=== PATIENT | male | born 1980 | race Caucasian/White ===

== ENCOUNTER 2020-01-20 09:12 | Emergency (ER) | payer MEDICARE, MEDICAID ==
[~2020-01-20] VITALS: Ht 182.9 cm; Wt 143.2 kg
[~2020-01-20 09:12] MED LIST: ESCI10TA45 PO; LORA-512 PO; LORA0.5T PO
[2020-01-20] MEDS ORDERED: dexamethasone sod phosphate 10mg/ml inj IM STA (09:38)
[2020-01-20] MEDS ORDERED: ketorolac trometh inj. 60 MG/2 ML VIAL IM ONE (09:40)
[2020-01-20] MEDS ORDERED: CYCL5TAB PO (10:06)
[2020-01-20] MEDS ORDERED: METH4TAB81 PO (10:06)
[2020-01-20] MEDS ORDERED: IBUP-1984 PO (10:06)
[2020-01-20 10:23] VITALS: BP 147/100
== END 2020-01-20 10:22 | disposition home or self-care (01) ==
LOC: ER 09:12
DX: M54.5 Low back pain (principal); E78.00 Pure hypercholesterolemia, unspecified; G89.29 Other chronic pain; Z98.890 Other specified postprocedural states; Z79.899 Other long term (current) drug therapy
CPT/HCPCS: 96372; 99284; J1100; J1885

== ENCOUNTER 2020-06-26 10:43 | Day surgery (SDC) | payer MEDICARE, MEDICAID ==
[2020-06-21 09:33] LABS: BASOPHILS # (AUTO) 0.1 X10'3 (0-0.2); BASOPHILS % (AUTO) 1.2 % (0-1); EOSINOPHILS # (AUTO) 0.2 X10'3 (0-0.9); EOSINOPHILS % (AUTO) 2.2 % (0-6); LYMPHOCYTES # (AUTO) 2.1 X10'3 (1.1-4.8); LYMPHOCYTES % (AUTO) 30.5 % (21-51); MEAN CORPUSCULAR HEMOGLOBIN 29.8 PG (27.0-31.0); MEAN CORPUSCULAR HGB CONC 34.8 g/dL (33.0-36.5); MEAN CORPUSCULAR VOLUME 85.6 FL (78-98); MEAN PLATELET VOLUME 8.9 FL (7.4-10.4); MONOCYTES # (AUTO) 0.5 X10'3 (0-0.9); MONOCYTES % (AUTO) 7.6 % (2-12); NEUTROPHILS # (AUTO) 4.1 X10'3 (1.8-7.7); NEUTROPHILS % (AUTO) 58.5 % (42-75); PRE OP HEMATOCRIT 45.1 % (42.0-52.0); PRE OP HEMOGLOBIN 15.7 g/dL (14.0-17.9); PRE OP PLATELET COUNT 235 X10'3 (140-440); RED BLOOD COUNT 5.26 X10'6 (4.70-6.10); RED CELL DISTRIBUTION WIDTH 13.7 % (11.5-14.5)
[2020-06-21 09:47] LABS: ALBUMIN/GLOBULIN RATIO 1.1 (1.1-1.5); ALKALINE PHOSPHATASE 65 IU/L (46-116); BLOOD UREA NITROGEN 14 MG/DL (7-18); BUN/CREATININE RATIO 14.4 (5.4-32.0); CALCIUM 9.2 MG/DL (8.5-10.1); CHLORIDE 106 MMOL/L (99-107); CREATININE 0.97 MG/DL (0.60-1.10); PRE OP AST 31 U/L (10-37); PRE OP BILIRUB, TOTAL 0.7 MG/DL (0.0-1.0); PRE OP GLUCOSE 101 MG/DL (70-104); TOTAL CARBON DIOXIDE 25.7 MMOL/L (24-32); TOTAL PROTEIN 7.8 G/DL (6.4-8.2); eGFR 86 ML/MIN
[2020-06-21 09:49] LABS: PRE OP ANION GAP 8 (8-16); PRE OP SODIUM 140 MMOL/L (135-145)
[2020-06-21 10:02] LABS: PRE OP ALT 83 U/L (30-65)
[2020-06-26] VITALS (12 sets, daily range): BP systolic 121–147; BP diastolic 78–90
[~2020-06-26] VITALS: Ht 182.9 cm; Wt 140.5 kg
[~2020-06-26 10:43] MED LIST changes: +ATOR40TA71 PO; +BUS15T PO; +DOCUMENT DATE & TIME OF BETA-BLOCKER PO ONE; -ESCI10TA45 PO; -LORA-512 PO; -LORA0.5T PO; +LORA10TA7 PO; +OMEG1CAP13 PO; +PROP10TA10 PO; +acetaminophen 1,000mg/100ml IV 100 ML IV ONE; +famotidine 20mg tablet PO ONE; +ringers solution, lacted 1,000 ML IV SCH
[2020-06-26] MEDS ORDERED: ceFAZolin inj. 3,000 MG in normal saline 100ml IV soln 100 ML IV ONE (11:04)
[2020-06-26] MEDS ORDERED: BUPIVAcaine/PF 2.5mg/ml (0.25%) 10ml vial ONE (13:06)
[2020-06-26] MEDS ORDERED: BUPIVAcaine/PF 2.5 mg/ml (0.25%) 30ml vial ONE (13:06)
[2020-06-26] MEDS ORDERED: BUPIVACAINE liposomal/PF 13.3 MG/ML vial IM ONE (13:06)
[2020-06-26] MEDS ORDERED: LIDOcaine 1% 30ml preserv. free vial ONE (13:06)
[2020-06-26] MEDS ORDERED: sevoflurane 250ml liquid IH ONE (13:15)
[2020-06-26] MEDS ORDERED: midazolam 2 mg/2 ml injection ONE (13:16)
[2020-06-26] MEDS ORDERED: fentaNYL/PF 50MCG/1 ML 2ML syringe ONE ×2 (13:16→13:51)
[2020-06-26] MEDS ORDERED: succinylcholine 20mg/ml inj IV ONE (14:17)
[2020-06-26] MEDS ORDERED: ondansetron/PF 4mg/2ml inj ONE (14:17)
[2020-06-26] MEDS ORDERED: neostigmine methylsulfate 1 MG/ML 10ml vial ONE (14:17)
[2020-06-26] MEDS ORDERED: rocuronium 10mg/ml inj IV ONE (14:17)
[2020-06-26] MEDS ORDERED: LIDOcaine 2% (20mg/ml) 5ml vial ONE (14:17)
[2020-06-26] MEDS ORDERED: propofol inj 20 ML IV ONE (14:17)
[2020-06-26] MEDS ORDERED: dexamethasone sod phosphate 4mg/ml inj. ONE (14:17)
[2020-06-26] MEDS ORDERED: glycopyrrolate 0.2mg/ml inj ONE (14:17)
[2020-06-26] MEDS ORDERED: morphine 4 MG/ML inj SYRINge IV PRN (14:20)
[2020-06-26] MEDS ORDERED: proCHLORperazine 10 MG/2 ml inj IV PRN (14:20)
[2020-06-26] MEDS ORDERED: ringers solution, lacted 1,000 ML IV SCH (14:20)
[2020-06-26] MEDS ORDERED: morphine 2 MG/ML inj. syringe IV PRN (14:20)
[2020-06-26] MEDS ORDERED: meperidine/PF 25mg/ml syringe IV PRN ×3 (14:20)
[2020-06-26] MEDS ORDERED: ondansetron/PF 4mg/2ml inj IV PRN (14:20)
[2020-06-26] MEDS ORDERED: oxyCODONE/APAP 5-325mg tablet PO PRN (14:50)
[2020-06-26] MEDS ORDERED: oxyCODONE/APAP 10/325mg tablet PO PRN (14:50)
[2020-06-26] MEDS ORDERED: albuterol 60 PUFF/8GM Inhaler IH ONE (15:12)
== END 2020-06-26 16:30 | disposition home or self-care (01) ==
LOC: PAS 10:43
PROVIDERS: ATTEND Surgery
DX: K42.0 Umbilical hernia with obstruction, without gangrene (principal); I10 Essential (primary) hypertension; G47.30 Sleep apnea, unspecified; F41.9 Anxiety disorder, unspecified; Z20.822 Contact with and (suspected) exposure to COVID-19; Z98.890 Other specified postprocedural states; Z79.899 Other long term (current) drug therapy; Z87.891 Personal history of nicotine dependence
CPT/HCPCS: 36415; 49653; 80053; 82948; 85025; 87635; C1781; C9290; J0131; J0330; J0690; J1100; J2001; J2250; J2405; J2704; J2710; J3010; J3490; S2900; A4215; A4618; J7120

== ENCOUNTER 2020-06-27 12:22 | Emergency (ER) | payer MEDICARE, MEDICAID ==
[~2020-06-27] VITALS: Ht 182.9 cm; Wt 147.7 kg
[~2020-06-27 12:22] MED LIST changes: -DOCUMENT DATE & TIME OF BETA-BLOCKER PO ONE; -acetaminophen 1,000mg/100ml IV 100 ML IV ONE; -famotidine 20mg tablet PO ONE; -ringers solution, lacted 1,000 ML IV SCH
[2020-06-27] MEDS ORDERED: LIDOcaine 2% 10ml TOPICAL JELLY (Urojet) TP ONE (14:35)
[2020-06-27] MEDS ORDERED: oxyCODONE/APAP 10/325mg tablet PO ONE (14:35)
[2020-06-27 15:04] VITALS: BP 152/94
== END 2020-06-27 16:16 | disposition home or self-care (01) ==
LOC: ER 12:23
DX: T81.9XXA Unspecified complication of procedure, initial encounter (principal); R33.9 Retention of urine, unspecified; R10.84 Generalized abdominal pain; E78.00 Pure hypercholesterolemia, unspecified; G89.29 Other chronic pain; F17.210 Nicotine dependence, cigarettes, uncomplicated; Z98.890 Other specified postprocedural states; Z79.899 Other long term (current) drug therapy; X58.XXXA Exposure to other specified factors, initial encounter; Y93.89 Activity, other specified; Y92.89 Other specified places as the place of occurrence of the external cause; Y99.8 Other external cause status
CPT/HCPCS: 51702; 99284

== ENCOUNTER 2021-09-01 11:42 | Emergency (ER) | payer MEDICARE, MEDICAID | END 2021-09-01 12:10 | disposition left against medical advice (07) | LOC: ER 11:43 | DX: J11.1 Influenza due to unidentified influenza virus with other respiratory manifestations (principal); Z53.21 Procedure and treatment not carried out due to patient leaving prior to being seen by health care provider ==

== ENCOUNTER 2021-12-07 13:39 | Emergency (ER) | payer MEDICARE, MEDICAID ==
[~2021-12-07] VITALS: Ht 182.9 cm; Wt 123.0 kg
[2021-12-07] MEDS ORDERED: DOXYCYCLINE 100MG CAPSULE PO STA (17:08)
[2021-12-07] MEDS ORDERED: ibuprofen 200mg tablet PO ONE (17:10)
[2021-12-07] MEDS ORDERED: pseudoephedrine 30mg tablet PO ONE (17:10)
[2021-12-07 17:20] VITALS: BP 137/79
[2021-12-07] MEDS ORDERED: DOXY-1 PO (17:28)
== END 2021-12-07 18:02 | disposition home or self-care (01) ==
LOC: ER 13:40
DX: J01.00 Acute maxillary sinusitis, unspecified (principal); E78.00 Pure hypercholesterolemia, unspecified; G89.29 Other chronic pain
CPT/HCPCS: 99284

== ENCOUNTER 2021-12-28 17:41 | Emergency (ER) | payer MEDICARE, MEDICAID ==
[~2021-12-28] VITALS: Ht 182.9 cm; Wt 120.8 kg
--- NOTE | 2021-12-28 17:53 | NUR ---
EKG DONE 1747 BY EDUARDO
[2021-12-28 18:16] VITALS: BP 159/108
[2021-12-28] MEDS ORDERED: traMADol 50MG tablet PO ONE (21:10)
[2021-12-28] MEDS ORDERED: TRAM50TA2 PO (21:20)
== END 2021-12-28 21:39 | disposition home or self-care (01) ==
LOC: ER 17:43
DX: J32.8 Other chronic sinusitis (principal); E78.00 Pure hypercholesterolemia, unspecified; G89.29 Other chronic pain
CPT/HCPCS: 93005; 99283

== ENCOUNTER 2022-01-07 23:00 | Emergency (ER) | payer MEDICARE, MEDICAID ==
[~2022-01-07] VITALS: Ht 182.9 cm; Wt 120.5 kg
[2022-01-07 23:03] VITALS: BP 147/103
[2022-01-07] MEDS ORDERED: ibuprofen tablet 400 MG TABLET PO ONE (23:50)
== END 2022-01-08 00:01 | disposition home or self-care (01) ==
LOC: ER 23:00
DX: M26.602 Left temporomandibular joint disorder, unspecified (principal); E78.00 Pure hypercholesterolemia, unspecified; G89.29 Other chronic pain; Z79.899 Other long term (current) drug therapy
CPT/HCPCS: 99282

== ENCOUNTER 2022-01-13 15:52 | Emergency (ER) | payer MEDICARE, MEDICAID ==
[~2022-01-13] VITALS: Ht 182.9 cm; Wt 113.6 kg
[2022-01-13 17:33] VITALS: BP 121/87
[2022-01-13 18:42] LABS: BASOPHILS % (AUTO) 0.3 % (0-1); EOSINOPHILS # (AUTO) 0.2 X10'3 (0-0.9); EOSINOPHILS % (AUTO) 1.7 % (0-6); HEMATOCRIT 42.7 % (42.0-52.0); HEMOGLOBIN 15.3 g/dl (14.0-17.9); LYMPHOCYTES # (AUTO) 3.1 X10'3 (1.1-4.8); LYMPHOCYTES % (AUTO) 32.6 % (21-51); MEAN CORPUSCULAR HEMOGLOBIN 30.8 PG (27.0-31.0); MEAN CORPUSCULAR HGB CONC 35.9 g/dL (33.0-36.5); MEAN CORPUSCULAR VOLUME 85.8 FL (78-98); MEAN PLATELET VOLUME 9.1 FL (7.4-10.4); MONOCYTES # (AUTO) 0.6 X10'3 (0-0.9); NEUTROPHILS # (AUTO) 5.6 X10'3 (1.8-7.7); NEUTROPHILS % (AUTO) 59.4 % (42-75); PLATELET COUNT 210 X10'3 (140-440); RED BLOOD COUNT 4.98 X10'6 (4.70-6.10); RED CELL DISTRIBUTION WIDTH 13.4 % (11.5-14.5); WHITE BLOOD COUNT 9.5 X10'3 (4.5-11.0)
[2022-01-13 18:52] LABS: ALANINE AMINOTRANSFERASE 38 U/L (12-78); ALBUMIN 4.3 G/DL (3.4-5.0); ALBUMIN/GLOBULIN RATIO 1.3 (1.1-1.5); ALKALINE PHOSPHATASE 53 IU/L (46-116); ANION GAP 10 (8-16); ASPARTATE AMINO TRANSFERASE 22 U/L (10-37); BILIRUBIN,TOTAL 1.1 MG/DL (0.1-1.0); BLOOD UREA NITROGEN 7 MG/DL (7-18); BUN/CREATININE RATIO 8.3 (5.4-32.0); CALCIUM 9.6 MG/DL (8.5-10.1); CHLORIDE 103 MMOL/L (99-107); CREATININE 0.84 MG/DL (0.60-1.10); GLUCOSE 90 MG/DL (70-104); POTASSIUM 3.5 MMOL/L (3.5-5.1); SODIUM 140 MMOL/L (135-145); TOTAL CARBON DIOXIDE 27.4 MMOL/L (24-32); TOTAL PROTEIN 7.5 G/DL (6.4-8.2); eGFR > 90 ML/MIN
[2022-01-13 18:55] LABS: LIPASE 52 U/L (73-393)
[2022-01-13 19:30] LABS: CLARITY,URINE CLEAR (Clear); GLUCOSE, URINE NEGATIVE (Neg); KETONES,URINE NEGATIVE (Neg); LEUKOCYTE ESTERASE ,URINE NEGATIVE (Neg); NITRITES, URINE NEGATIVE (Neg); OCCULT BLOOD,URINE NEGATIVE (Neg); PROTEIN,URINE NEGATIVE (Neg); UROBILINOGEN,URINE 0.2 E.U/dL (0.2-1.0)
[2022-01-13 19:37] LABS: COLOR,URINE STRAW (Yellow); UA COLLECTION TYPE CLN CATCH MIDSTREAM
[2022-01-13] MEDS ORDERED: LIDOcaine Viscous 15ml cup MM ONE (19:50)
[2022-01-13] MEDS ORDERED: ketorolac trometh inj. 60 MG/2 ML VIAL IM ONE (19:50)
[2022-01-13] MEDS ORDERED: mag hydrox/Alum hydrox/simeth 30ml oral suspension PO ONE (19:50)
[2022-01-13] MEDS ORDERED: OMEP20TA43 PO (20:00)
== END 2022-01-13 21:13 | disposition home or self-care (01) ==
LOC: ER 15:53
DX: R10.13 Epigastric pain (principal); R07.89 Other chest pain; E78.00 Pure hypercholesterolemia, unspecified; G89.29 Other chronic pain; Z98.890 Other specified postprocedural states; Z79.899 Other long term (current) drug therapy
CPT/HCPCS: 36415; 71045; 80053; 81003; 83690; 84484; 85025; 93005; 96372; 99285; J1885

== ENCOUNTER 2022-01-15 23:13 | Emergency (ER) | payer MEDICARE, MEDICAID ==
[~2022-01-15] VITALS: Ht 182.9 cm; Wt 115.5 kg
[~2022-01-15 23:13] MED LIST changes: +OMEP20TA43 PO
[2022-01-16 00:55] VITALS: BP 142/109
[2022-01-16] MEDS ORDERED: HYDROcodone/acetaminophen 5mg/325mg tablet PO ONE (02:20)
== END 2022-01-16 04:51 | disposition home or self-care (01) ==
LOC: ER 23:13
DX: R68.84 Jaw pain (principal); E78.00 Pure hypercholesterolemia, unspecified; G89.29 Other chronic pain; Z79.899 Other long term (current) drug therapy
CPT/HCPCS: 70486; 99284

== ENCOUNTER 2022-01-19 20:18 | Emergency (ER) | payer MEDICARE, MEDICAID ==
[~2022-01-19] VITALS: Ht 182.9 cm; Wt 113.6 kg
[2022-01-19 20:22] VITALS: BP 142/106
[2022-01-19] MEDS ORDERED: HYDROcodone/acetaminophen 5mg/325mg tablet PO ONE (22:20)
== END 2022-01-19 22:38 | disposition home or self-care (01) ==
LOC: ER 20:19
DX: R51.9 Headache, unspecified (principal); M26.603 Bilateral temporomandibular joint disorder, unspecified; E78.00 Pure hypercholesterolemia, unspecified; G89.29 Other chronic pain; Z98.890 Other specified postprocedural states; Z79.899 Other long term (current) drug therapy
CPT/HCPCS: 99281; 99283

== ENCOUNTER 2022-02-20 08:16 | Emergency (ER) | payer MEDICARE, MEDICAID ==
[~2022-02-20] VITALS: Ht 182.9 cm; Wt 117.3 kg
[2022-02-20 08:54] LABS: BASOPHILS # (AUTO) 0.1 X10'3 (0-0.2); BASOPHILS % (AUTO) 0.7 % (0-1); EOSINOPHILS # (AUTO) 0.2 X10'3 (0-0.9); HEMOGLOBIN 16.3 g/dl (14.0-17.9); LYMPHOCYTES # (AUTO) 1.9 X10'3 (1.1-4.8); LYMPHOCYTES % (AUTO) 23.5 % (21-51); MEAN PLATELET VOLUME 8.2 FL (7.4-10.4); MONOCYTES # (AUTO) 0.5 X10'3 (0-0.9); MONOCYTES % (AUTO) 5.7 % (2-12); NEUTROPHILS # (AUTO) 5.6 X10'3 (1.8-7.7); NEUTROPHILS % (AUTO) 68.1 % (42-75); PLATELET COUNT 237 X10'3 (140-440); WHITE BLOOD COUNT 8.3 X10'3 (4.5-11.0)
[2022-02-20 09:08] LABS: ALANINE AMINOTRANSFERASE 77 U/L (12-78); ALBUMIN 4.1 G/DL (3.4-5.0); ALBUMIN/GLOBULIN RATIO 1.1 (1.1-1.5); ALKALINE PHOSPHATASE 69 IU/L (46-116); ANION GAP 7 (8-16); ASPARTATE AMINO TRANSFERASE 32 U/L (10-37); BILIRUBIN,TOTAL 0.8 MG/DL (0.1-1.0); BLOOD UREA NITROGEN 11 MG/DL (7-18); BUN/CREATININE RATIO 11.5 (5.4-32.0); CHLORIDE 101 MMOL/L (99-107); CREATININE 0.96 MG/DL (0.60-1.10); GLUCOSE 77 MG/DL (70-104); LIPASE < 50 U/L (73-393); POTASSIUM 4.2 MMOL/L (3.5-5.1); SODIUM 138 MMOL/L (135-145); TOTAL CARBON DIOXIDE 30.5 MMOL/L (24-32); TOTAL PROTEIN 7.7 G/DL (6.4-8.2); eGFR 87 ML/MIN
[2022-02-20 10:05] LABS: HEMATOCRIT 46.6 % (42.0-52.0); MEAN CORPUSCULAR HEMOGLOBIN 30.7 PG (27.0-31.0); MEAN CORPUSCULAR VOLUME 87.5 FL (78-98); RED BLOOD COUNT 5.32 X10'6 (4.70-6.10)
[2022-02-20] MEDS ORDERED: mag hydrox/Alum hydrox/simeth 30ml oral suspension PO ONE (14:40)
[2022-02-20] MEDS ORDERED: LIDOcaine Viscous 15ml cup MM ONE (14:40)
[2022-02-20 14:48] LABS: CLARITY,URINE CLEAR (Clear); COLOR,URINE YELLOW (Yellow); GLUCOSE, URINE NEGATIVE (Neg); KETONES,URINE NEGATIVE (Neg); LEUKOCYTE ESTERASE ,URINE NEGATIVE (Neg); NITRITES, URINE NEGATIVE (Neg); OCCULT BLOOD,URINE NEGATIVE (Neg); PROTEIN,URINE NEGATIVE (Neg); UROBILINOGEN,URINE 0.2 E.U/dL (0.2-1.0)
[2022-02-20 14:51] LABS: UA COLLECTION TYPE CLN CATCH MIDSTREAM
[2022-02-20] MEDS ORDERED: DOCU-151 PO (15:10)
[2022-02-20] MEDS ORDERED: MAGN296S70 PO (15:10)
[2022-02-20 15:29] VITALS: BP 137/84
== END 2022-02-20 15:31 | disposition home or self-care (01) ==
LOC: ER 08:17
DX: R10.13 Epigastric pain (principal); R11.2 Nausea with vomiting, unspecified; K59.00 Constipation, unspecified; E78.00 Pure hypercholesterolemia, unspecified; K21.9 Gastro-esophageal reflux disease without esophagitis; G89.29 Other chronic pain; Z98.890 Other specified postprocedural states; Z79.899 Other long term (current) drug therapy
CPT/HCPCS: 36415; 74018; 80053; 81003; 83690; 84484; 85025; 93005; 99285

== ENCOUNTER 2022-12-12 15:44 | Emergency (ER) | payer MEDICARE, MEDICAID ==
[~2022-12-12] VITALS: Ht 185.4 cm; Wt 150.0 kg
[~2022-12-12 15:44] MED LIST changes: +DOCU-151 PO; +MAGN296S89 PO; +OMEG-5 PO; -OMEG1CAP13 PO
[2022-12-12 16:05] LABS: BASOPHILS # (AUTO) 0.1 X10'3 (0-0.2); EOSINOPHILS # (AUTO) 0.2 X10'3 (0-0.9); EOSINOPHILS % (AUTO) 1.7 % (0-6); HEMATOCRIT 45.1 % (42.0-52.0); HEMOGLOBIN 15.6 g/dl (14.0-17.9); LYMPHOCYTES # (AUTO) 2.4 X10'3 (1.1-4.8); LYMPHOCYTES % (AUTO) 27.1 % (21-51); MEAN CORPUSCULAR HEMOGLOBIN 30.6 PG (27.0-31.0); MEAN CORPUSCULAR HGB CONC 34.5 g/dL (33.0-36.5); MEAN CORPUSCULAR VOLUME 88.5 FL (78-98); MEAN PLATELET VOLUME 8.7 FL (7.4-10.4); MONOCYTES # (AUTO) 0.5 X10'3 (0-0.9); MONOCYTES % (AUTO) 5.8 % (2-12); NEUTROPHILS # (AUTO) 5.8 X10'3 (1.8-7.7); NEUTROPHILS % (AUTO) 64.4 % (42-75); PLATELET COUNT 208 X10'3 (140-440); RED BLOOD COUNT 5.09 X10'6 (4.70-6.10); RED CELL DISTRIBUTION WIDTH 13.8 % (11.5-14.5)
[2022-12-12 16:09] VITALS: BP 152/113; PULSE 101; RESP 18; TEMP 97.8; O2SAT 98
[2022-12-12 16:29] LABS: ALANINE AMINOTRANSFERASE 59 U/L (12-78); ALBUMIN 4.1 G/DL (3.4-5.0); ALBUMIN/GLOBULIN RATIO 1.1 (1.1-1.5); ALKALINE PHOSPHATASE 73 IU/L (46-116); ANION GAP 8 (8-16); ASPARTATE AMINO TRANSFERASE 21 U/L (10-37); BILIRUBIN,TOTAL 0.6 MG/DL (0.1-1.0); BLOOD UREA NITROGEN 11 MG/DL (7-18); BUN/CREATININE RATIO 10.4 (10.0-20.0); CALCIUM 9.2 MG/DL (8.5-10.1); CHLORIDE 105 MMOL/L (99-107); CREATININE 1.06 MG/DL (0.60-1.10); GLUCOSE 94 MG/DL (70-104); POTASSIUM 4.1 MMOL/L (3.5-5.1); SODIUM 141 MMOL/L (135-145); TOTAL CARBON DIOXIDE 28.4 MMOL/L (24-32); TOTAL PROTEIN 7.8 G/DL (6.4-8.2); eCRCL 104 ML/MIN; eGFR 77 ML/MIN
[2022-12-12 16:35] LABS: PRO BRAIN NATRIURETIC PEPTIDE < 30 PG/ML (0-125)
== END 2022-12-12 22:22 | disposition left against medical advice (07) ==
LOC: ER 15:47
DX: R07.89 Other chest pain (principal); Z53.21 Procedure and treatment not carried out due to patient leaving prior to being seen by health care provider
CPT/HCPCS: 36415; 80053; 83880; 84484; 85025; 93005; 99281

== ENCOUNTER 2023-04-27 13:54 | Emergency (ER) | payer MEDICARE, MEDICAID ==
[~2023-04-27] VITALS: Ht 185.4 cm; Wt 138.2 kg
[2023-04-27 14:05] VITALS: BP 172/103; PULSE 91; RESP 18; TEMP 97; O2SAT 98
[2023-04-27] MEDS ORDERED: CEFD300C3 PO (16:44)
== END 2023-04-27 16:49 | disposition home or self-care (01) ==
LOC: ER 13:54
DX: J40 Bronchitis, not specified as acute or chronic (principal); E78.00 Pure hypercholesterolemia, unspecified; G89.29 Other chronic pain; Z98.890 Other specified postprocedural states; Z88.0 Allergy status to penicillin; Z79.899 Other long term (current) drug therapy
CPT/HCPCS: 71045; 99283

== ENCOUNTER 2023-05-03 09:42 | Emergency (ER) | payer MEDICARE, MEDICAID ==
[~2023-05-03] VITALS: Ht 185.4 cm; Wt 138.3 kg
[~2023-05-03 09:42] MED LIST changes: +CEFD300C3 PO
[2023-05-03 09:55] VITALS: BP 144/104; PULSE 92; RESP 18; TEMP 98.7; O2SAT 99
== END 2023-05-03 10:25 | disposition left against medical advice (07) ==
LOC: ER 09:43
DX: J11.1 Influenza due to unidentified influenza virus with other respiratory manifestations (principal); Z53.21 Procedure and treatment not carried out due to patient leaving prior to being seen by health care provider
CPT/HCPCS: 99281

== ENCOUNTER 2023-06-28 02:39 | Emergency (ER) | payer MEDICARE, MEDICAID ==
[~2023-06-28] VITALS: Ht 182.9 cm; Wt 135.3 kg
[~2023-06-28 02:39] MED LIST changes: -CEFD300C3 PO
[2023-06-28 02:42] VITALS: TEMP 98.1
[2023-06-28 03:22] LABS: BASOPHILS % (AUTO) 0.2 % (0-1); EOSINOPHILS % (AUTO) 0 % (0-6); HEMATOCRIT 48.6 % (42.0-52.0); HEMOGLOBIN 16.3 g/dl (14.0-17.9); LYMPHOCYTES # (AUTO) 1.1 X10'3 (1.1-4.8); MEAN CORPUSCULAR HEMOGLOBIN 29.7 PG (27.0-31.0); MEAN CORPUSCULAR HGB CONC 33.5 g/dL (33.0-36.5); MEAN CORPUSCULAR VOLUME 88.8 FL (78-98); MEAN PLATELET VOLUME 8.3 FL (7.4-10.4); MONOCYTES # (AUTO) 0.2 X10'3 (0-0.9); NEUTROPHILS # (AUTO) 16.6 X10'3 (1.8-7.7); NEUTROPHILS % (AUTO) 92.8 % (42-75); PLATELET COUNT 249 X10'3 (140-440); RED BLOOD COUNT 5.48 X10'6 (4.70-6.10); RED CELL DISTRIBUTION WIDTH 14.1 % (11.5-14.5); WHITE BLOOD COUNT 17.8 X10'3 (4.5-11.0)
[2023-06-28 03:54] LABS: ALBUMIN 3.8 G/DL (3.4-5.0); ANION GAP 9 (8-16); BLOOD UREA NITROGEN 12 MG/DL (7-18); CALCIUM 9.2 MG/DL (8.5-10.1); CHLORIDE 102 MMOL/L (99-107); CREATININE 0.75 MG/DL (0.60-1.10); GLUCOSE 127 MG/DL (70-104); POTASSIUM 4.4 MMOL/L (3.5-5.1); PRO BRAIN NATRIURETIC PEPTIDE < 30 PG/ML (0-125); SODIUM 139 MMOL/L (135-145); TOTAL CARBON DIOXIDE 27.8 MMOL/L (24-32); eCRCL 141 ML/MIN; eGFR > 90 ML/MIN
[2023-06-28 04:11] LABS: ALANINE AMINOTRANSFERASE 61 U/L (12-78); ALKALINE PHOSPHATASE 63 IU/L (46-116); ASPARTATE AMINO TRANSFERASE 18 U/L (10-37); BILIRUBIN,DIRECT 0.3 MG/DL (0-0.3); BILIRUBIN,TOTAL 1.3 MG/DL (0.1-1.0); LIPASE 18 U/L (16-77); TOTAL PROTEIN 7.5 G/DL (6.4-8.2)
[2023-06-28] MEDS: LORazepam 2 mg/ml vial IV ONE (04:19)
[2023-06-28] MEDS: mag hydrox/Alum hydrox/simeth 30ml oral suspension PO ONE (04:19)
[2023-06-28] MEDS: LIDOcaine Viscous 15ml cup MM ONE (04:19)
[2023-06-28] MEDS: normal saline 1000ml 1,000 ML IV ONE (04:19)
[2023-06-28 04:26] VITALS: PULSE 93
[2023-06-28 04:52] LABS: D-DIMER 0.23 MG/L FEU (0-0.50)
[2023-06-28] MEDS ORDERED: ALBU8HFA PO (06:02)
[2023-06-28] MEDS ORDERED: LANS30CA37 PO (06:02)
[2023-06-28] MEDS ORDERED: DOXY150T9 PO (06:02)
[2023-06-28] MEDS ORDERED: PRED20TA PO (06:02)
[2023-06-28 06:10] VITALS: BP 130/78; RESP 16; O2SAT 98
== END 2023-06-28 06:11 | disposition home or self-care (01) ==
LOC: ER 02:39
DX: J18.1 Lobar pneumonia, unspecified organism (principal); K29.70 Gastritis, unspecified, without bleeding; K59.00 Constipation, unspecified; E78.00 Pure hypercholesterolemia, unspecified; I10 Essential (primary) hypertension; K21.9 Gastro-esophageal reflux disease without esophagitis; Z88.0 Allergy status to penicillin; Z79.899 Other long term (current) drug therapy
CPT/HCPCS: 36415; 71045; 80048; 80076; 83690; 83880; 84484; 85025; 85379; 93005; 96361; 96374; 99285; J2060; J7030

== ENCOUNTER 2023-07-07 18:19 | Emergency (ER) | payer MEDICARE, MEDICAID ==
[~2023-07-07] VITALS: Ht 182.9 cm; Wt 134.8 kg
[~2023-07-07 18:19] MED LIST changes: +ALBU8HFA PO; +LANS30CA37 PO
[2023-07-07 18:35] VITALS: TEMP 96.9
[2023-07-07 20:01] LABS: BASOPHILS % (AUTO) 0.1 % (0-1); EOSINOPHILS % (AUTO) 0.3 % (0-6); HEMATOCRIT 45.7 % (42.0-52.0); HEMOGLOBIN 15.8 g/dl (14.0-17.9); LYMPHOCYTES # (AUTO) 0.9 X10'3 (1.1-4.8); LYMPHOCYTES % (AUTO) 8.5 % (21-51); MEAN CORPUSCULAR HEMOGLOBIN 30.8 PG (27.0-31.0); MEAN CORPUSCULAR HGB CONC 34.5 g/dL (33.0-36.5); MEAN CORPUSCULAR VOLUME 89.3 FL (78-98); MEAN PLATELET VOLUME 8.6 FL (7.4-10.4); MONOCYTES # (AUTO) 0.2 X10'3 (0-0.9); MONOCYTES % (AUTO) 1.7 % (2-12); NEUTROPHILS # (AUTO) 9.4 X10'3 (1.8-7.7); NEUTROPHILS % (AUTO) 89.4 % (42-75); PLATELET COUNT 198 X10'3 (140-440); RED BLOOD COUNT 5.12 X10'6 (4.70-6.10); RED CELL DISTRIBUTION WIDTH 13.7 % (11.5-14.5); WHITE BLOOD COUNT 10.6 X10'3 (4.5-11.0)
[2023-07-07 20:18] LABS: ALBUMIN 3.7 G/DL (3.4-5.0); ANION GAP 10 (8-16); BLOOD UREA NITROGEN 7 MG/DL (7-18); BUN/CREATININE RATIO 6.9 (10.0-20.0); CALCIUM 9.1 MG/DL (8.5-10.1); CHLORIDE 104 MMOL/L (99-107); CREATININE 1.02 MG/DL (0.60-1.10); GLUCOSE 101 MG/DL (70-104); POTASSIUM 3.8 MMOL/L (3.5-5.1); SODIUM 141 MMOL/L (135-145); TOTAL CARBON DIOXIDE 26.8 MMOL/L (24-32); eCRCL 104 ML/MIN; eGFR 80 ML/MIN
[2023-07-07 20:20] LABS: PRO BRAIN NATRIURETIC PEPTIDE < 30 PG/ML (0-125)
[2023-07-07] MEDS ORDERED: ALBU8HFA PO (20:34)
[2023-07-07] MEDS ORDERED: PRED20TA PO (20:34)
[2023-07-07] MEDS: predniSONE 20 mg tablet PO ONE (20:57)
[2023-07-07 21:01] VITALS: BP 133/90; PULSE 92; RESP 18; O2SAT 98
== END 2023-07-07 21:08 | disposition home or self-care (01) ==
LOC: ER 18:19
DX: J20.9 Acute bronchitis, unspecified (principal); Z20.822 Contact with and (suspected) exposure to COVID-19; B34.9 Viral infection, unspecified; E78.00 Pure hypercholesterolemia, unspecified; I10 Essential (primary) hypertension; K21.9 Gastro-esophageal reflux disease without esophagitis; F41.9 Anxiety disorder, unspecified; Z79.899 Other long term (current) drug therapy; Z79.1 Long term (current) use of non-steroidal anti-inflammatories (NSAID); Z79.2 Long term (current) use of antibiotics
CPT/HCPCS: 36415; 71045; 80048; 83880; 84484; 85025; 87502; 87503; 87811; 93005; 99285; J7512

== ENCOUNTER 2023-07-12 18:18 | Emergency (ER) | payer MEDICARE, MEDICAID ==
[~2023-07-12] VITALS: Ht 182.9 cm; Wt 133.3 kg
[~2023-07-12 18:18] MED LIST changes: +PRED20TA PO
[2023-07-12 18:20] VITALS: TEMP 98.8
[2023-07-12 19:08] VITALS: BP 145/91; PULSE 108; RESP 16; O2SAT 97
[2023-07-12] MEDS ORDERED: AMOX-117 PO (21:38)
[2023-07-12] MEDS: amoxicillin 250mg capsule PO ONE (21:49)
== END 2023-07-12 21:53 | disposition home or self-care (01) ==
LOC: ER 18:18
DX: J98.8 Other specified respiratory disorders (principal); R04.2 Hemoptysis; E78.00 Pure hypercholesterolemia, unspecified; I10 Essential (primary) hypertension; K21.9 Gastro-esophageal reflux disease without esophagitis; Z79.2 Long term (current) use of antibiotics; Z79.899 Other long term (current) drug therapy; Z87.891 Personal history of nicotine dependence
CPT/HCPCS: 71045; 99283

== ENCOUNTER 2023-08-01 09:34 | Emergency (ER) | payer MEDICARE, MEDICAID ==
[~2023-08-01] VITALS: Ht 182.9 cm; Wt 133.6 kg
[~2023-08-01 09:34] MED LIST changes: -PRED20TA PO
[2023-08-01 09:37] VITALS: BP 128/91; PULSE 127; RESP 16; TEMP 98.5; O2SAT 100
[2023-08-01] MEDS ORDERED: ALBU6.7H14 INH (11:33)
[2023-08-01] MEDS ORDERED: PRED20TA PO (11:33)
[2023-08-01] MEDS ORDERED: BUDE180A INH (11:33)
== END 2023-08-01 11:40 | disposition home or self-care (01) ==
LOC: ER 09:34
DX: J45.909 Unspecified asthma, uncomplicated (principal); E78.00 Pure hypercholesterolemia, unspecified; I10 Essential (primary) hypertension; K21.9 Gastro-esophageal reflux disease without esophagitis; Z79.899 Other long term (current) drug therapy
CPT/HCPCS: 71045; 93005; 99283

== ENCOUNTER 2023-09-06 07:38 | Emergency (ER) | payer MEDICARE, MEDICAID ==
[~2023-09-06] VITALS: Ht 185.4 cm; Wt 134.1 kg
[~2023-09-06 07:38] MED LIST changes: +ALBU6.7H14 INH; -ALBU8HFA PO; +BUDE180A INH
[2023-09-06 07:44] VITALS: BP 161/103; PULSE 117; RESP 18; TEMP 98.7; O2SAT 97
[2023-09-06] MEDS ORDERED: AZIT250T83 PO (09:19)
[2023-09-06] MEDS ORDERED: FLUT16SP2 BOTHNARES (09:19)
[2023-09-06] MEDS ORDERED: CETI10CA PO (09:19)
== END 2023-09-06 09:34 | disposition home or self-care (01) ==
LOC: ER 07:39
DX: J06.9 Acute upper respiratory infection, unspecified (principal); E78.00 Pure hypercholesterolemia, unspecified; I10 Essential (primary) hypertension; K21.9 Gastro-esophageal reflux disease without esophagitis; Z79.899 Other long term (current) drug therapy
CPT/HCPCS: 99283

== ENCOUNTER 2023-09-30 12:03 | Emergency (ER) | payer MEDICARE, MEDICAID ==
[~2023-09-30] VITALS: Ht 182.9 cm; Wt 2.2 kg
[~2023-09-30 12:03] MED LIST changes: +CETI10CA PO; +FLUT16SP2 BOTHNARES
[2023-09-30 12:32] VITALS: BP 129/93; PULSE 115; RESP 18; TEMP 97.8; O2SAT 99
== END 2023-09-30 14:18 | disposition left against medical advice (07) ==
LOC: ER 12:03
DX: R05.9 Cough, unspecified (principal); Z53.21 Procedure and treatment not carried out due to patient leaving prior to being seen by health care provider

== ENCOUNTER 2023-09-30 13:06 | Outpatient (CLI) | payer MEDICARE, MEDICAID | END 2023-09-30 23:59 | disposition home or self-care (01) | LOC: RAD 13:06 | PROVIDERS: ATTEND Family Medicine | DX: R10.84 Generalized abdominal pain (principal) | CPT/HCPCS: 74022 ==

== ENCOUNTER 2023-10-29 11:25 | Emergency (ER) | payer MEDICARE, MEDICAID ==
[~2023-10-29] VITALS: Ht 182.9 cm; Wt 135.3 kg
[2023-10-29 11:35] VITALS: BP 153/110; PULSE 96; O2SAT 98
[2023-10-29] MEDS ORDERED: DEC4T PO (13:21)
[2023-10-29] MEDS ORDERED: GUAI600T45 PO (13:21)
[2023-10-29] MEDS ORDERED: AMOX-580 PO (13:21)
[2023-10-29] MEDS: dexamethasone sod phosphate 10mg/ml inj PO STA (13:22)
[2023-10-29 13:25] VITALS: RESP 17; TEMP 98.2
== END 2023-10-29 13:26 | disposition home or self-care (01) ==
LOC: ER 11:26
DX: J32.8 Other chronic sinusitis (principal); J98.8 Other specified respiratory disorders; E78.00 Pure hypercholesterolemia, unspecified; I10 Essential (primary) hypertension; K21.9 Gastro-esophageal reflux disease without esophagitis; G89.29 Other chronic pain; F41.9 Anxiety disorder, unspecified; Z98.890 Other specified postprocedural states; Z79.899 Other long term (current) drug therapy; Z79.51 Long term (current) use of inhaled steroids; Z79.2 Long term (current) use of antibiotics
CPT/HCPCS: 99283; J1100

== ENCOUNTER 2023-11-30 14:10 | Emergency (ER) | payer MEDICARE, MEDICAID ==
[~2023-11-30] VITALS: Ht 182.9 cm; Wt 132.3 kg
[~2023-11-30 14:10] MED LIST changes: +DEC4T PO; +GUAI600T45 PO
[2023-11-30 15:09] LABS: BASOPHILS # (AUTO) 0.1 X10'3 (0-0.2); BASOPHILS % (AUTO) 0.5 % (0-1); EOSINOPHILS % (AUTO) 0.2 % (0-6); HEMATOCRIT 46.4 % (42.0-52.0); HEMOGLOBIN 15.9 g/dl (14.0-17.9); LYMPHOCYTES # (AUTO) 1.8 X10'3 (1.1-4.8); LYMPHOCYTES % (AUTO) 13.9 % (21-51); MEAN CORPUSCULAR HEMOGLOBIN 30.4 PG (27.0-31.0); MEAN CORPUSCULAR HGB CONC 34.3 g/dL (33.0-36.5); MEAN CORPUSCULAR VOLUME 88.7 FL (78-98); MONOCYTES # (AUTO) 0.4 X10'3 (0-0.9); MONOCYTES % (AUTO) 3.2 % (2-12); NEUTROPHILS # (AUTO) 10.6 X10'3 (1.8-7.7); NEUTROPHILS % (AUTO) 82.2 % (42-75); PLATELET COUNT 207 X10'3 (140-440); RED BLOOD COUNT 5.23 X10'6 (4.70-6.10); WHITE BLOOD COUNT 12.9 X10'3 (4.5-11.0)
[2023-11-30 15:22] VITALS: TEMP 98.9
[2023-11-30 15:32] LABS: ALANINE AMINOTRANSFERASE 43 U/L (12-78); ALBUMIN/GLOBULIN RATIO 1.1 (1.1-1.5); ALKALINE PHOSPHATASE 61 IU/L (46-116); ANION GAP 10 (8-16); ASPARTATE AMINO TRANSFERASE 17 U/L (10-37); BILIRUBIN,TOTAL 0.7 MG/DL (0.1-1.0); BLOOD UREA NITROGEN 8 MG/DL (7-18); BUN/CREATININE RATIO 10.7 (10.0-20.0); CALCIUM 9.3 MG/DL (8.5-10.1); CHLORIDE 103 MMOL/L (99-107); CREATININE 0.75 MG/DL (0.60-1.10); GLUCOSE 98 MG/DL (70-104); POTASSIUM 3.9 MMOL/L (3.5-5.1); SODIUM 138 MMOL/L (135-145); TOTAL CARBON DIOXIDE 24.8 MMOL/L (24-32); TOTAL PROTEIN 7.7 G/DL (6.4-8.2); eCRCL 141 ML/MIN; eGFR > 90 ML/MIN
[2023-11-30 15:40] LABS: APTT 28 SECONDS (22-32); PROTHROMBIN TIME 10.5 SECONDS (9.0-12.0)
[2023-11-30 15:43] LABS: THYROID STIMULATING HORMONE 1.55 ulU/ml (0.34-4.50)
[2023-11-30 16:01] VITALS: BP 109/67; PULSE 103; RESP 16; O2SAT 97
[2023-11-30 16:03] LABS: FREE T4 (FREE THYROXINE) 0.78 NG/DL (0.73-1.40)
[2023-11-30 16:11] LABS: PRO BRAIN NATRIURETIC PEPTIDE < 30 PG/ML (0-125)
[2023-11-30 16:20] LABS: BILIRUBIN,URINE NEGATIVE (Neg); CLARITY,URINE CLEAR (Clear); COLOR,URINE YELLOW (Yellow); GLUCOSE, URINE NEGATIVE (Neg); KETONES,URINE NEGATIVE (Neg); LEUKOCYTE ESTERASE ,URINE NEGATIVE (Neg); NITRITES, URINE NEGATIVE (Neg); OCCULT BLOOD,URINE NEGATIVE (Neg); PROTEIN,URINE NEGATIVE (Neg); UROBILINOGEN,URINE 0.2 E.U/dL (0.2-1.0)
[2023-11-30 16:27] LABS: UA COLLECTION TYPE CLN CATCH MIDSTREAM
[2023-11-30 16:45] LABS: URINE AMPHETAMINE SCREEN NEGATIVE (Neg); URINE BARBITUATE SCREEN NEGATIVE (Neg); URINE BENZODIAZEPINES SCREEN NEGATIVE (Neg); URINE CANNABINOID SCREEN NEGATIVE (Neg); URINE COCAINE SCREEN NEGATIVE (Neg); URINE METHADONE SCREEN NEGATIVE (Neg); URINE OPIATE SCREEN NEGATIVE (Neg); URINE PHENCYCLIDINE SCREEN NEGATIVE (Neg)
[2023-11-30] MEDS: mag hydrox/Alum hydrox/simeth 30ml oral suspension PO ONE (17:36)
[2023-11-30] MEDS: LIDOcaine 2% Viscous 15ml cup MM PRN (17:36)
[2023-11-30] MEDS: dicyclomine 10 MG capsule PO ONE (17:36)
[2023-11-30] MEDS ORDERED: LIDO15SO9 PO (17:45)
[2023-11-30] MEDS ORDERED: MAG-54 PO (17:45)
[2023-11-30] MEDS ORDERED: DICY20TA17 PO (17:45)
== END 2023-11-30 17:58 | disposition home or self-care (01) ==
LOC: ER 14:11
DX: R07.9 Chest pain, unspecified (principal); K21.9 Gastro-esophageal reflux disease without esophagitis; R10.13 Epigastric pain; L75.0 Bromhidrosis; E78.00 Pure hypercholesterolemia, unspecified; I10 Essential (primary) hypertension; G89.29 Other chronic pain; F41.9 Anxiety disorder, unspecified; Z98.890 Other specified postprocedural states; Z79.899 Other long term (current) drug therapy; Z79.2 Long term (current) use of antibiotics; Z79.51 Long term (current) use of inhaled steroids
CPT/HCPCS: 36415; 71045; 80053; 80305; 81003; 83880; 84439; 84443; 84484; 85025; 85610; 85730; 93005; 99285

== ENCOUNTER 2023-12-26 11:42 | Emergency (ER) | payer MEDICARE, MEDICAID ==
[~2023-12-26] VITALS: Ht 185.4 cm; Wt 131.0 kg
[~2023-12-26 11:42] MED LIST changes: +DICY20TA17 PO; +LIDO15SO9 PO; +MAG-54 PO
[2023-12-26] MEDS ORDERED: AMOX-117 PO (13:13)
[2023-12-26 13:26] VITALS: BP 143/85; PULSE 70; RESP 18; TEMP 98; O2SAT 97
== END 2023-12-26 13:27 | disposition home or self-care (01) ==
LOC: ER 11:43
DX: J22 Unspecified acute lower respiratory infection (principal); E78.00 Pure hypercholesterolemia, unspecified; I10 Essential (primary) hypertension; K21.9 Gastro-esophageal reflux disease without esophagitis; G89.29 Other chronic pain; F41.9 Anxiety disorder, unspecified; Z20.822 Contact with and (suspected) exposure to COVID-19; Z79.899 Other long term (current) drug therapy; Z79.2 Long term (current) use of antibiotics; Z79.51 Long term (current) use of inhaled steroids; Z79.52 Long term (current) use of systemic steroids; Z98.890 Other specified postprocedural states
CPT/HCPCS: 36415; 87811; 99283

== ENCOUNTER 2024-02-18 14:07 | Emergency (ER) | payer MEDICARE, MEDICAID ==
[~2024-02-18] VITALS: Ht 182.9 cm; Wt 138.6 kg
[2024-02-18] MEDS ORDERED: ipratropium/albuterol 3ml nebule NEB STA (15:37)
[2024-02-18] MEDS: dexamethasone sod phosphate 10mg/ml inj PO STA (15:52)
[2024-02-18 15:57] VITALS: PULSE 116; PULSE 124; RESP 20
[2024-02-18] MEDS ORDERED: ALBU8HFA INH (16:25)
[2024-02-18] MEDS ORDERED: BROM118S60 PO (16:25)
[2024-02-18] MEDS ORDERED: PRED20TA PO (16:25)
[2024-02-18 16:51] VITALS: BP 138/88; PULSE 90; RESP 20; TEMP 98.9; O2SAT 99
== END 2024-02-18 16:52 | disposition home or self-care (01) ==
LOC: ER 14:07
DX: J20.9 Acute bronchitis, unspecified (principal); E78.00 Pure hypercholesterolemia, unspecified; I10 Essential (primary) hypertension; K21.9 Gastro-esophageal reflux disease without esophagitis; Z91.148 Patient's other noncompliance with medication regimen for other reason; Z79.899 Other long term (current) drug therapy; Z98.890 Other specified postprocedural states
CPT/HCPCS: 71045; 99283; J1100; Z7610; 94760

== ENCOUNTER 2024-09-03 14:30 | Emergency (ER) | payer MEDICARE, MEDICAID ==
[~2024-09-03] VITALS: Ht 182.9 cm; Wt 162.1 kg
[~2024-09-03 14:30] MED LIST changes: +BROM118S60 PO; -BUDE180A INH; +BUDE180A5 INH
[2024-09-03 14:44] VITALS: BP 134/92; PULSE 113; RESP 18; O2SAT 98
--- NOTE | 2024-09-03 14:56 | Physician Documentation ---
History of Present Illness ~ Chief Complaint: Facial Pain Stated Complaint: SINUS INFECTION Time Seen by MD: 16:42 OK to notify your PCP?: Yes Primary Medical Doctor: SHIRLEY GRIDER Richard is a 44-year-old male presenting to our emergency department with complaints of facial pain with palpation to his bilateral maxillary sinuses and frontal sinuses to wearing a mask while weed whacking. He does have a history of 2 septal surgeries. He reports having seasonal allergies and a runny nose and sinus pain x 3 days prior to weed whacking and also after. Denies epistaxis, falls or trauma to face. Has a history of recurrent sinus infections and requesting abx. Tetanus Within 5 Years: Yes Medication Reconciliation Allergies: Coded Allergies: No Known Allergies (Unverified , 12/26/23) Scheduled Albuterol Sulfate (Proventil Hfa), 2 PUFFS INH Q4H Atorvastatin Calcium (Atorvastatin Calcium), 1 TAB PO DAILY, (Reported) Budesonide (Pulmicort Flexhaler), 2 PUFFS INH Q12H Buspirone HCl (Buspirone HCl), 10 MG PO BID, (Reported) Cetirizine Hcl (Zyrtec), 1 CAP PO DAILY Dexamethasone (Decadron), 8 MG PO UD Dicyclomine HCl (Dicyclomine HCl), 1 TAB PO Q6H Docosahexanoic Acid/Epa (Fish Oil 1,000 Mg Softgel), 2 CAP PO BID, (Reported) Docusate Sodium (Colace), 1 CAP PO Q12H Fluticasone Propionate (Flonase), 2 SPRAYS BOTHNARES DAILY Guaifenesin (Mucinex), 1 TAB PO Q12H Lansoprazole (Prevacid), 1 CAP PO DAILY Lidocaine HCl (Lidocaine HCl Viscous), 15 ML PO Q6H Loratadine (Loratadine), 1 TAB PO DAILY, (Reported) Mag Hydrox/Al Hydrox/Simeth (Maalox Advanced Max-Str Susp), 20 ML PO Q6H Magnesium Citrate (Magnesium Citrate), 296 ML PO ONCE Omeprazole (Omeprazole), 1 TAB PO DAILY Propranolol Hcl* (Inderal*), 20 MG PO BID, (Reported) Scheduled PRN D-Methorphan Hb/P-Epd HCl/Bpm (Bromfed Dm Cough Syrup), 10-May ML PO Q4HPRN PRN for cough Past Medical History Past Medical History: High Cholesterol, Hypertension, GERD, Hernia, Chronic Pain, *PSYCH*, Anxiety Past Surgical History: orthopedic surgeries, other Other Past Surgical History: Hernia repair with mesh, deviated septum repair Alcohol Use: None Drug Use: none Lives with: Other Lives In: Assisted Care Occupation: employed Review of Systems ROS Reviewed and negative unless listed in HPI. Physical Exam Vital Signs: RN Vital Signs have been reviewed: Yes, Temperature: 98.0, Source: Oral, Heart Rate: 113, Respiratory Rate: 18, BP: 134/92, Pulse Oximetry: 98, Weight: 162.100 Physical Exam General: conscious, coherent, non-toxic appearing, follows commands appropriately and in no apparent distress. Skin: Warm and dry without rash. HEENT: Head: Normocephalic without evidence of trauma. Eyes: Sclerae and conjunctiva normal. Ears: No external erythema or edema. Nose/face: rhinorrhea, facial tenderness to palpation of maxillary and frontal sinuses. Mouth/throat: Mucous membranes are moist. Neck: Supple. Trachea midline. No JVD. Chest: Good expansion without retractions or grunting. Equal chest rise and fall. Lungs clear to auscultation bilaterally. Heart: No cyanosis. S1 and S2 normal. No murmurs, rubs, gallops, or clicks. Extremities: Full range of motion. Good strength, bilaterally. No cyanosis, clubbing or edema. Neurologic: A&Ox4. Moves all extremities. Speech is clear. Gait normal. Progress Results/Orders Results/Orders Vital Signs 09/03/24 14:44 Temp 98.0 Pulse 113 Resp 18 B/P (MAP) 134/92 Pulse Ox 98 Medical Decision Making Findings Richard is a 44-year-old male who has pain to palpation of his sinuses with rhinorrhea. He has a history of recurrent sinus infections which required antibiotics. He mentions that it feels swollen, although no edema noted. There has not been any trauma to his face. Although he was wearing a mask while weed eating which seemed to increase his pain. He has no other upper respiratory infection signs or symptoms. I will prescribe amoxicillin for 5 days to take care of this sinus infection. I used shared decision making with Richard and he agrees to the plan. He should follow up with his primary care provider in the next 3 days. And return back here for any new or worsening symptoms. Additional Comment Maxillary fracture, orbital cellulitis, upper respiratory infection. Departure Disposition: 01 HOME / SELF CARE / HOMELESS Impression: Primary Impression: Sinusitis, acute maxillary Condition: Stable Discharge Instructions: Sinus Endoscopy, Care After Additional Instructions: Follow-up with your primary care provider in the next 3 days. Return back here for any new or worsening symptoms. Take all antibiotics as prescribed and to completion. Referrals: NO PRIMARY CARE PROVIDER (PCP) Education Educated: Patient Educated regarding: diagnosis, treatment, prognosis, need for follow up Signature Scribe Signature: . Attestation: Rebeca Dumont NP . 09/03/24 17:08 REBECA MARTINEZ [facility] September 03, 2024 14:56
[2024-09-03] MEDS ORDERED: AMOX-100 PO (17:07)
[2024-09-03 17:11] VITALS: TEMP 98
== END 2024-09-03 17:13 | disposition home or self-care (01) ==
LOC: ER 14:31
DX: J01.00 Acute maxillary sinusitis, unspecified (principal); I10 Essential (primary) hypertension; E78.00 Pure hypercholesterolemia, unspecified; K21.9 Gastro-esophageal reflux disease without esophagitis; F41.9 Anxiety disorder, unspecified; Z98.890 Other specified postprocedural states; Z79.899 Other long term (current) drug therapy
CPT/HCPCS: 99281

== ENCOUNTER 2025-01-21 05:40 | Emergency (ER) | payer MEDICARE, MEDICAID ==
[~2025-01-21] VITALS: Ht 185.4 cm; Wt 155.0 kg
[2025-01-21 05:46] VITALS: TEMP 97
[2025-01-21 05:57] VITALS: BP 175/111; PULSE 102; O2SAT 95
[2025-01-21] MEDS ORDERED: ketorolac trometh 15mg/ml vial 15 MG/ML ML IM ONE (06:35)
--- NOTE | 2025-01-21 06:40 | Physician Documentation ---
History of Present Illness ~ Chief Complaint: Back Pain Stated Complaint: LOWER BACK PAIN Time Seen by MD: 06:04 Primary Medical Doctor: SHIRLEY GRIDER 44-year-old male history of morbid obesity presenting for low back pain. Reports pain in his bilateral lower lumbar area after be getting a job today where he was doing lots of heavy lifting. He denies any fevers or chills. No bowel or bladder dysfunction. No numbness or tingling in his groin/perineum. No history of similar symptoms in the past. Denies any sensory loss Medication Reconciliation Allergies: Coded Allergies: No Known Allergies (Unverified , 01/21/25) Scheduled Albuterol Sulfate (Proventil Hfa), 2 PUFFS INH Q4H Atorvastatin Calcium (Atorvastatin Calcium), 1 TAB PO DAILY, (Reported) Budesonide (Pulmicort Flexhaler), 2 PUFFS INH Q12H Buspirone HCl (Buspirone HCl), 10 MG PO BID, (Reported) Cetirizine Hcl (Zyrtec), 1 CAP PO DAILY Dexamethasone (Decadron), 8 MG PO UD Dicyclomine HCl (Dicyclomine HCl), 1 TAB PO Q6H Docosahexanoic Acid/Epa (Fish Oil 1,000 Mg Softgel), 2 CAP PO BID, (Reported) Docusate Sodium (Colace), 1 CAP PO Q12H Fluticasone Propionate (Flonase), 2 SPRAYS BOTHNARES DAILY Guaifenesin (Mucinex), 1 TAB PO Q12H Lansoprazole (Prevacid), 1 CAP PO DAILY Lidocaine HCl (Lidocaine HCl Viscous), 15 ML PO Q6H Loratadine (Loratadine), 1 TAB PO DAILY, (Reported) Mag Hydrox/Al Hydrox/Simeth (Maalox Advanced Max-Str Susp), 20 ML PO Q6H Magnesium Citrate (Magnesium Citrate), 296 ML PO ONCE Omeprazole (Omeprazole), 1 TAB PO DAILY Propranolol Hcl* (Inderal*), 20 MG PO BID, (Reported) Scheduled PRN D-Methorphan Hb/P-Epd HCl/Bpm (Bromfed Dm Cough Syrup), 10-August ML PO Q4HPRN PRN for cough Past Medical History Past Medical History: High Cholesterol, Hypertension, GERD, Hernia, Chronic Pain, *PSYCH*, Anxiety Past Surgical History: orthopedic surgeries, other Other Past Surgical History: Hernia repair with mesh, deviated septum repair Alcohol Use: None Drug Use: none Lives with: Other Lives In: Assisted Care Occupation: employed Review of Systems All Other Systems at this time: Reviewed and Negative ROS Negative fever chills chest pain shortness of breath abdominal pain dysuria hematuria diarrhea constipation hematochezia Physical Exam Physical Exam Vital Signs: Temperature: 97.0, Heart Rate: 102, Respiratory Rate: 16, BP: 175/111, Pulse Oximetry: 95, Weight: 155.000 Oxygen Flow Rate: 0 Physical Exam Well-appearing no acute distress resting comfortably Awake alert oriented cranial nerves 2-12 intact intact upper and lower extremity strength. Intact bilateral upper and lower extremity sensation intact gait intact speech Breathing comfortably Abdomen soft nontender Tenderness over bilateral low lumbar muscles. No midline tenderness no deformity Skin warm well-perfused Progress Results/Orders Results/Orders Completed Orders - LYUDMILA ACUÑA MD Ketorolac Trometh 15mg/Ml Vial (Toradol (01/21/25 06:35) Acetaminophen 325mg Tablet (Tylenol Tabl (01/21/25 06:35) Prednisone Tablet (Prednisone Tablet) (01/21/25 06:35) Morphine Sulfate Ir 15mg Tab (Morphine S (01/21/25 06:35) Ketorolac Trometh 30mg/Ml Vial (Toradol (01/21/25 06:35) Vital Signs 01/21/25 01/21/25 05:46 05:57 Temp 97.0 Pulse 112 102 Resp 18 16 B/P (MAP) 162/106 175/111 (132) Pulse Ox 97 95 O2 Flow Rate 0 0 Re-Evaluation Re-Evaluation : Re-Evaluation: Improved Medical Decision Making Additional info obtained from: old records Differential Dx:Considerations: Include: Aortic dissection, Bowel obstruction, Renal infarction, Urolithiasis, Urinary tract infection Departure Disposition: HOME / SELF CARE / HOMELESS Impression: Primary Impression: Low back pain Qualified Codes: M54.50 - Low back pain, unspecified Additional Impression Text acute back pain with lifting. no red flags. Additional Instructions: Try over the counter lidocaine patches. They are usually very helpful. Start taking your prednisone tomorrow. Return for fever weakness or numbness in your groin Referrals: NO PRIMARY CARE PROVIDER (PCP) Prescriptions Methylprednisolone (Medrol Dosepak) 4 Mg Tab.ds.pk 0 PO UD, #21 TAB 0 Refills take 6 Pills Day 1, 5 Pills Day 2, 4 Pills Day 3, 3 Pills Day 4, 2 Pills Day 5 and 1 pill Day 6 Prov: LYUDMILA ACUÑA MD 01/21/25 Signature Scribe Signature: rocky Attestation: LYUDMILA Pulido MD Jan 21, 2025 06:40
[2025-01-21] MEDS: morphine sulfate IR 15MG tablet PO ONE (06:58)
[2025-01-21 07:01] VITALS: RESP 15
[2025-01-21] MEDS: ketorolac trometh 30MG/ML vial 30 MG/ML VIAL IM ONE (07:01)
[2025-01-21] MEDS ORDERED: METH4TAB81 PO (07:02)
[2025-01-22] MEDS ORDERED: METH-797 PO (08:07)
== END 2025-01-21 07:12 | disposition home or self-care (01) ==
LOC: ER 05:41
DX: M54.50 Low back pain, unspecified (principal); E78.00 Pure hypercholesterolemia, unspecified; I10 Essential (primary) hypertension; F41.9 Anxiety disorder, unspecified; K21.9 Gastro-esophageal reflux disease without esophagitis; Z98.890 Other specified postprocedural states
CPT/HCPCS: 96372; 99284; J1885; J7512

== ENCOUNTER 2025-01-22 01:45 | Emergency (ER) | payer MEDICARE, MEDICAID ==
[~2025-01-22] VITALS: Ht 182.9 cm; Wt 117.0 kg
[~2025-01-22 01:45] MED LIST changes: +METH4TAB81 PO
[2025-01-22 01:49] VITALS: BP 138/105; PULSE 105; RESP 18; TEMP 97; O2SAT 96
[2025-01-22] MEDS ORDERED: METH-797 PO (08:07)
== END 2025-01-22 03:08 | disposition left against medical advice (07) ==
LOC: ER 01:46
DX: M54.9 Dorsalgia, unspecified (principal); M25.559 Pain in unspecified hip; Z53.21 Procedure and treatment not carried out due to patient leaving prior to being seen by health care provider

== ENCOUNTER 2025-01-22 07:11 | Emergency (ER) | payer MEDICARE, MEDICAID ==
[~2025-01-22] VITALS: Ht 185.4 cm; Wt 143.0 kg
[2025-01-22 07:13] VITALS: TEMP 97
--- NOTE | 2025-01-22 07:56 | Physician Documentation ---
History of Present Illness ~ Chief Complaint: Hip pain Stated Complaint: HIP PAIN Time Seen by MD: 07:55 Primary Medical Doctor: SHIRLEY MOTT Mode of Arrival: POV, Ambulatory HPI presents with persistent back pain after heavy lifting yesterday. No fevers. No bowel or bladder involvement. does endorse some tingling to bottom of right foot. no weakness. Medication Reconciliation Allergies: Coded Allergies: No Known Allergies (Unverified , 01/21/25) Scheduled Albuterol Sulfate (Proventil Hfa), 2 PUFFS INH Q4H Atorvastatin Calcium (Atorvastatin Calcium), 1 TAB PO DAILY, (Reported) Budesonide (Pulmicort Flexhaler), 2 PUFFS INH Q12H Buspirone HCl (Buspirone HCl), 10 MG PO BID, (Reported) Cetirizine Hcl (Zyrtec), 1 CAP PO DAILY Dexamethasone (Decadron), 8 MG PO UD Dicyclomine HCl (Dicyclomine HCl), 1 TAB PO Q6H Docosahexanoic Acid/Epa (Fish Oil 1,000 Mg Softgel), 2 CAP PO BID, (Reported) Docusate Sodium (Colace), 1 CAP PO Q12H Fluticasone Propionate (Flonase), 2 SPRAYS BOTHNARES DAILY Guaifenesin (Mucinex), 1 TAB PO Q12H Lansoprazole (Prevacid), 1 CAP PO DAILY Lidocaine HCl (Lidocaine HCl Viscous), 15 ML PO Q6H Loratadine (Loratadine), 1 TAB PO DAILY, (Reported) Mag Hydrox/Al Hydrox/Simeth (Maalox Advanced Max-Str Susp), 20 ML PO Q6H Magnesium Citrate (Magnesium Citrate), 296 ML PO ONCE Methylprednisolone (Medrol Dosepak), 0 PO UD Omeprazole (Omeprazole), 1 TAB PO DAILY Propranolol Hcl* (Inderal*), 20 MG PO BID, (Reported) Scheduled PRN D-Methorphan Hb/P-Epd HCl/Bpm (Bromfed Dm Cough Syrup), 10-May ML PO Q4HPRN PRN for cough Methocarbamol (Methocarbamol), 3 TAB PO Q8H PRN for pain Past Medical History Past Medical History: High Cholesterol, Hypertension, GERD, Hernia, Chronic Pain, *PSYCH*, Anxiety Past Surgical History: orthopedic surgeries, other Other Past Surgical History: Hernia repair with mesh, deviated septum repair Alcohol Use: None Drug Use: none Lives with: Other Lives In: Assisted Care Occupation: employed Review of Systems Constitutional: Denies: chills, fever Respiratory: Denies: shortness of breath Cardiovascular: Denies: chest pain Gastrointestinal: Denies: abdominal pain Neurological: Denies: headache Physical Exam Vital Signs: RN Vital Signs have been reviewed: Yes, Temperature: 97.0, Source: Oral, Heart Rate: 99, Respiratory Rate: 18, BP: 158/110, Pulse Oximetry: 98, Weight: 143.000 Physical Exam well appearing no distress awake alert oriented normal speech moist mucous membranes abd soft non tender msk no midling c t l spine ttp. Bilateral lumbar paraspinal ttp. painless hip and knee rom. 5/5 hip flexion, knee extension and dorsi plantar flexion intact sensation pt/dp pulses intact, ext warm well perfused intact gait and wbi Progress Results/Orders Results/Orders Orders - LYUDMILA ACUÑA MD Hip Unilateral 2 Views (01/22/25 07:19) Completed Orders - LYUDMILA ACUÑA MD Hip Unilateral 2 Views (01/22/25 07:19) Ketorolac Trometh 15mg/Ml Vial (Toradol (01/22/25 08:00) Tizanidine Tablet (Zanaflex Tablet) (01/22/25 08:00) Medications Received in ER Medications (Trade) Dose Ordered Sig/Luis Route PRN Reason Start Time Stop Time Status Last Admin Dose Admin (Toradol injection) 30 mg ONCE ONCE IM 01/22/25 08:00 01/22/25 08:30 DC 01/22/25 08:38 30 MG (Zanaflex tablet) 8 mg ONCE ONCE PO 01/22/25 08:00 01/22/25 08:30 DC 01/22/25 08:36 8 MG Vital Signs 01/22/25 01/22/25 01/22/25 01/22/25 07:13 07:42 08:38 08:39 Temp 97.0 Pulse 99 104 Resp 18 18 20 18 B/P (MAP) 158/110 173/116 (135) Pulse Ox 98 99 01/22/25 09:17 Pulse 93 Resp 18 B/P (MAP) 116/75 Pulse Ox 98 EKG/XRAY/CT/US/VASC/MRI CT : Impression XR independently interpreted shows no acute fracture dislocation, joint intact Departure Disposition: 01 HOME / SELF CARE / HOMELESS Impression: Primary Impression: Low back pain Qualified Codes: M54.42 - Lumbago with sciatica, left side; M54.41 - Lumbago with sciatica, right side Additional Instructions: your x ray is normal. Return for fever or worsening pain. Continue taking the prednisone. I have also started you on methocarbamol, do not drive while taking this medication. Referrals: NO PRIMARY CARE PROVIDER (PCP) Prescriptions Methocarbamol (Methocarbamol) 500 Mg Tablet 3 TAB PO Q8H PRN for pain for 30 Days, #90 TAB 0 Refills Prov: LYUDMILA ACUÑA MD 01/22/25 Signature Scribe Signature: rocky Attestation: LYUDMILA Pulido MD Jan 22, 2025 07:56
--- NOTE | 2025-01-22 08:05 | RADIOLOGY REPORT ---
DI HIP UNILATERAL 2 VIEWS HISTORY: HIP PAIN TECHNICAL DATA: Frontal view was obtained of the pelvis with frontal view and frog lateral view of the right hip. COMPARISON: None FINDINGS: The right hip is normally located. The right hip joint is maintained and without marginal osteophytes. No right hip fracture is identified. There is no abnormality involving the bony pelvis. The sacroiliac joints appear normal. The pubic symphysis appears normal. The contralateral hip demonstrates no a bnormality on the single frontal view. The proximal femurs demonstrate no abnormality. There is degenerative change of the visualized lower lumbar spine. IMPRESSION: No acute fracture or dislocation of the pelvis and right hip.
[2025-01-22] MEDS ORDERED: METH-797 PO (08:07)
[2025-01-22] MEDS: ketorolac trometh 15mg/ml vial 15 MG/ML ML IM ONE (08:38)
[2025-01-22 09:17] VITALS: BP 116/75; PULSE 93; RESP 18; O2SAT 98
== END 2025-01-22 09:20 | disposition home or self-care (01) ==
LOC: ER 07:11
DX: M54.50 Low back pain, unspecified (principal); M79.671 Pain in right foot; I10 Essential (primary) hypertension; E78.00 Pure hypercholesterolemia, unspecified; K21.9 Gastro-esophageal reflux disease without esophagitis; G89.29 Other chronic pain; F41.9 Anxiety disorder, unspecified; Z98.890 Other specified postprocedural states; Z79.899 Other long term (current) drug therapy
CPT/HCPCS: 73502; 96372; 99283; J1885

== ENCOUNTER 2025-02-05 13:18 | Emergency (ER) | payer MEDICARE, MEDICAID ==
[~2025-02-05] VITALS: Ht 185.4 cm; Wt 152.5 kg
[~2025-02-05 13:18] MED LIST changes: +METH-797 PO
[2025-02-05 13:22] VITALS: BP 140/93; PULSE 120; RESP 18; TEMP 98.4; O2SAT 97
--- NOTE | 2025-02-05 14:27 | Physician Documentation ---
History of Present Illness ~ Chief Complaint: Cold, cough & congestion Stated Complaint: SINUS INFECTION Time Seen by MD: 14:03 Primary Medical Doctor: SHIRLEY MOTT Source: patient Mode of Arrival: POV Exam Limitations: no limitations HPI Patient has known history as sinusitis with three nasal surgeries in the past. Complains of sinus pressure that started today and pain in the template region in the back of the neck intermittently. No pain currently. States his sinus pressure improves and he blows his nose. Complains of congestion. Denies fevers or chills. No pain pressure. Was asked, but otherwise denies review of systems. Medication Reconciliation Allergies: Coded Allergies: No Known Allergies (Unverified , 02/05/25) Scheduled Albuterol Sulfate (Proventil Hfa), 2 PUFFS INH Q4H Amox Tr/Potassium Clavulanate 875/125 MG (Augmentin 875/125 MG), 1 TAB PO BID Atorvastatin Calcium (Atorvastatin Calcium), 1 TAB PO DAILY, (Reported) Budesonide (Pulmicort Flexhaler), 2 PUFFS INH Q12H Buspirone HCl (Buspirone HCl), 10 MG PO BID, (Reported) Cetirizine Hcl (Zyrtec), 1 CAP PO DAILY Dexamethasone (Decadron), 8 MG PO UD Dicyclomine HCl (Dicyclomine HCl), 1 TAB PO Q6H Docosahexanoic Acid/Epa (Fish Oil 1,000 Mg Softgel), 2 CAP PO BID, (Reported) Docusate Sodium (Colace), 1 CAP PO Q12H Fluticasone Propionate (Flonase), 2 SPRAYS BOTHNARES DAILY Guaifenesin (Mucinex), 1 TAB PO Q12H Lansoprazole (Prevacid), 1 CAP PO DAILY Lidocaine HCl (Lidocaine HCl Viscous), 15 ML PO Q6H Loratadine (Loratadine), 1 TAB PO DAILY, (Reported) Loratadine (Loratadine), 1 TAB PO DAILY Mag Hydrox/Al Hydrox/Simeth (Maalox Advanced Max-Str Susp), 20 ML PO Q6H Magnesium Citrate (Magnesium Citrate), 296 ML PO ONCE Methylprednisolone (Medrol Dosepak), 0 PO UD Omeprazole (Omeprazole), 1 TAB PO DAILY Propranolol Hcl* (Inderal*), 20 MG PO BID, (Reported) Scheduled PRN D-Methorphan Hb/P-Epd HCl/Bpm (Bromfed Dm Cough Syrup), 10-August ML PO Q4HPRN PRN for cough Methocarbamol (Methocarbamol), 3 TAB PO Q8H PRN for pain Past Medical History Past Medical History: *ENT*, High Cholesterol, Hypertension, GERD, Hernia, Chronic Pain, *PSYCH*, Anxiety Past Surgical History: orthopedic surgeries, other Other Past Surgical History: Hernia repair with mesh, deviated septum repair Alcohol Use: None Drug Use: none Lives with: Other Lives In: Assisted Care Occupation: employed Review of Systems ROS Review of systems negative except documented in HPI. Physical Exam Vital Signs: Temperature: 98.4, Source: Oral, Heart Rate: 120, Respiratory Rate: 18, BP: 140/93, Pulse Oximetry: 97, Weight: 152.500 Oxygen Flow Rate: 0 Pulse Oximetry Reflects: adequate oxygenation Physical Exam General: Awake, alert, oriented. No apparent distress HEENT: Normocephalic. Trachea midline. Bilateral ears with cerumen. No impaction. External auditory canal with cerumen that no swelling, tympanic membrane without bulging. Pearly fung. Normal light reflex. Oropharynx without erythema or cobblestoning. Nasal: Mild erythema. No swelling. No lymphadenopathy on palpation. There is pain with palpation over the frontal sinuses. Respiratory: Lungs are clear to auscultation bilaterally. No respiratory distress. Chest: Normal shape and size. No accessory muscle use. Cardiovascular: Regular rate and rhythm. S1-S2. No murmur, gallop, rub. Neurologic: Alert and oriented x4. Nonfocal Psychiatric: Normal mood and affect. Skin: Normal color. Warm and dry. Progress Results/Orders Results/Orders Vital Signs 02/05/25 13:22 Temp 98.4 Pulse 120 Resp 18 B/P (MAP) 140/93 Pulse Ox 97 O2 Flow Rate 0 Medical Decision Making Findings This is an otherwise healthy, well appearing patient presenting with hx of sinusitis presenting with similar symptoms. I have low clinical suspicion for deep space tissue infection of the head/neck, cavernous sinus thrombosis, meningitis, or other high risk bacterial infection. Based on patients physical exam and clinical symptoms. Antibiotic treatment with amoxicillin-clavulanate is indicated for likely bacterial etiology given that the patients frequent symptoms and hx of multiple sinus surgeries. Patient is aware that the purpose of this visit was to screen for an acute medical emergency requiring emergent stabilization. Chronic conditions, including malignancies, have not been ruled out. Patient is instructed to follow-up with a PCP as directed in discharge instructions for continued care and work-up. If unable to arrange follow-up, patient is instructed to return to the ED for reassessment. Patient was given verbal and written discharge instructions and acknowledges understanding. Differential Dx:Considerations: Include: Allergic rhinitis, Influenza, Otitis media, Peritonsillar abscess, Pharyngitis-Viral, Pneumonia, Pnuemonitis, Sinusitis, URI Departure Time of Disposition: 14:23 Disposition: 01 HOME / SELF CARE / HOMELESS Impression: Primary Impression: Sinusitis Qualified Codes: J01.10 - Acute frontal sinusitis, unspecified Condition: Stable Discharge Instructions: Sinus Infection, Adult Additional Instructions: Your symptoms may be secondary to an allergic rhinosinusitis versus a bacterial infection. Given your history of multiple surgeries you are at risk. 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 Please follow up with your primary care provider. Recommend that you try taking allergy medications to see if that helps her symptoms. Otherwise, may start course of antibiotics. Your ENT is instructions for sinus care. Please return for new or worsening symptoms. Referrals: NO PRIMARY CARE PROVIDER (PCP) Prescriptions Loratadine (Loratadine) 10 Mg Tablet 1 TAB PO DAILY for allergy symptoms for 30 Days, #30 TAB 0 Refills Prov: JOYCE GARCAI NP 02/05/25 Amox Tr/Potassium Clavulanate 875/125 MG (Augmentin 875/125 MG) 875 Mg-125 Mg Tablet 1 TAB PO BID for 7 Days, #14 TAB Prov: JOYCE GARCIA NP 02/05/25 Signature Scribe Signature: No scribe Attestation: The note accurately reflects work and decisions made by me.Joyce Dumont NP 02/05/25 17:47 This note was created with the assistance of voice recognition software whereby errors in grammar, syntax, and/or spelling may have occurred despite active proofreading efforts by the author. Please do not hesitate to contact the provider for clarification or for questions regarding the content of this document. JOYCE GARCIA NP Feb 05, 2025 14:27
[2025-02-05] MEDS ORDERED: LORA10TA7 PO (14:28)
[2025-02-05] MEDS ORDERED: AMOX-580 PO (14:28)
== END 2025-02-05 14:51 | disposition home or self-care (01) ==
LOC: ER 13:19
DX: J32.9 Chronic sinusitis, unspecified (principal); E78.00 Pure hypercholesterolemia, unspecified; G89.29 Other chronic pain; I10 Essential (primary) hypertension; K21.9 Gastro-esophageal reflux disease without esophagitis; F41.9 Anxiety disorder, unspecified; Z98.890 Other specified postprocedural states; Z91.013 Allergy to seafood; Z79.899 Other long term (current) drug therapy
CPT/HCPCS: 99283